=== PATIENT | male | born 1975 | race African-American/Black ===

== ENCOUNTER 2017-04-27 15:11 | Emergency (ER) | payer MEDICAID, OTHER ==
[~2017-04-27] VITALS: Ht 193 cm; Wt 85.0 kg
[2017-04-27] MEDS ORDERED: ALBU2.5V13 IH (15:40)
[2017-04-27] MEDS ORDERED: IBUPROFEN 600MG TABLET PO STA (19:14)
[2017-04-27] MEDS ORDERED: ACETAMINOPHEN 325MG TABLET PO STA (19:14)
[2017-04-27] MEDS ORDERED: SODIUM CHLORIDE 0.9% 1000ML BAG (SEPSIS BOLUS) IV ONE (19:15)
[2017-04-27 19:34] LABS: BASOPHILS % 0.6 % (0.0-2.0); HEMATOCRIT. 40.2 % (42.0-52.0); HEMOGLOBIN. 13.7 g/dL (14.0-18.0); LYMPHOCYTES % 15.5 % (20.0-50.0); MEAN CORPUSCULAR HEMOGLOBIN 32.4 pg (28.0-32.0); MEAN CORPUSCULAR VOLUME 95.3 fL (80.0-94.0); MEAN PLATELET VOLUME 8.1 fl (7.4-10.4); NEUTROPHILS % 76.9 % (40.0-76.0); PLATELET 262 x1000/uL (130-400); RED BLOOD CELL COUNT 4.22 mill/uL (4.7-6.1); RED CELL DISTRIBUTION WIDTH 13.7 % (11.6-14.6)
[2017-04-27 19:40] LABS: CHLORIDE 100 mEq/L (98-107)
[2017-04-27 19:41] LABS: INR 1.1; PROTHROMBIN TIME 11.4 sec (9.4-11.6)
[2017-04-27 19:48] LABS: CARBON DIOXIDE 22 mEq/L (21-32)
[2017-04-27] MEDS ORDERED: POTASSIUM CHLORIDE 20MEQ TABLET SR PO ONE (22:45)
[2017-04-27] MEDS ORDERED: GUAIFENESIN/CODEINE 100-10MG/5ML UDC PO ONE (22:45)
[2017-04-27 23:45] VITALS: BP 106/61
== END 2017-04-27 23:47 | disposition home or self-care (01) ==
LOC: ER 15:44
DX: B34.9 Viral infection, unspecified (principal); Z88.0 Allergy status to penicillin
CPT/HCPCS: 36415; 71045; 80053; 83605; 85025; 85610; 87040; 87804; 93005; 96360; 96361; 99285; J7030; Z7610

== ENCOUNTER 2018-12-31 18:41 | Emergency (ER) | payer MEDICAID ==
[~2018-12-31] VITALS: Ht 180.3 cm; Wt 78.0 kg
[~2018-12-31 18:41] MED LIST: ALBU2.5V13 IH
[2018-12-31] MEDS ORDERED: MORPHINE SULFATE 4 MG/ML CPJ (NOT FOR IM USE) IV STA (19:28)
[2018-12-31] MEDS ORDERED: ONDANSETRON HCL 4MG/2ML INJ IV STA (19:28)
[2018-12-31] MEDS ORDERED: SODIUM CHLORIDE 0.9% 1,000 ML IV ONE (19:28)
[2018-12-31 19:58] LABS: BASOPHILS % 0.7 % (0.0-2.0); EOSINOPHILS % 0.3 % (0.0-5.0); HEMATOCRIT. 41.7 % (42.0-52.0); HEMOGLOBIN. 14.3 g/dL (14.0-18.0); LYMPHOCYTES % 23.8 % (20.0-50.0); MEAN CORPUSCULAR HEMOGLOBIN 33.1 pg (28.0-32.0); MEAN CORPUSCULAR VOLUME 96.8 fL (80.0-94.0); MEAN PLATELET VOLUME 7.9 fl (7.4-10.4); MONOCYTES % 6.6 % (2.0-8.0); NEUTROPHILS % 68.6 % (40.0-76.0); PLATELET 350 x1000/uL (130-400); RED BLOOD CELL COUNT 4.31 mill/uL (4.7-6.1); RED CELL DISTRIBUTION WIDTH 14.3 % (11.6-14.6)
[2018-12-31 20:02] LABS: CHLORIDE 106 mEq/L (98-107)
[2018-12-31 20:04] LABS: INR 0.9; PARTIAL THROMBOPLASTIN TIME 28.5 sec (23.4-31.0); PROTHROMBIN TIME 9.8 sec (9.6-11.0)
[2018-12-31] MEDS ORDERED: IOHEXOL-300 100 ML BOTTLE ONE (21:41)
[2018-12-31] MEDS ORDERED: KETOROLAC 30MG/ML VIAL IV ONE (22:45)
[2018-12-31] MEDS ORDERED: NEOMY SULF/BACITRAC ZN/POLY OINT 28GM TOP STA (22:55)
[2019-01-01 01:12] VITALS: BP 118/70
== END 2019-01-01 01:13 | disposition home or self-care (01) ==
LOC: ER 18:41
DX: S20.212A Contusion of left front wall of thorax, initial encounter (principal); S60.221A Contusion of right hand, initial encounter; S80.02XA Contusion of left knee, initial encounter; Y08.89XA Assault by other specified means, initial encounter; Y93.89 Activity, other specified; Y92.89 Other specified places as the place of occurrence of the external cause; Y99.8 Other external cause status; F41.9 Anxiety disorder, unspecified; J45.909 Unspecified asthma, uncomplicated; Z88.0 Allergy status to penicillin
CPT/HCPCS: 36415; 70450; 71260; 73130; 73562; 74177; 80053; 84484; 85025; 85610; 85730; 93005; 96374; 96375; 99284; J1885; J2270; J2405; J7030; Q9967